=== PATIENT | male | born 1990 | race Hispanic/Latino ===

== ENCOUNTER 2024-02-28 10:45 | Emergency (ER) | payer OTHER ==
[2024-02-28] MEDS ORDERED: ONDANSETRON 4 MG/2 ML VIAL ONE (10:55)
[2024-02-28] MEDS ORDERED: NA CHLORIDE 0.9% 1,000 ML ONE (10:55)
[2024-02-28 11:08] LABS: Absolute Basophils 0.1 K/uL (0-0.5); Absolute Eosinophils 0.2 K/uL (0-0.5); Absolute Lymphocytes (CBC) 1.9 K/uL (0.7-4.9); Absolute Monocytes 0.5 K/uL (0.1-1.3); Absolute Neutrophil 4.3 K/uL (1.8-8.0); Eosinophils % 2.7 % (0-4.4); Hematocrit 37.5 % (39.6-49.0); Hemoglobin 12.5 g/dL (13.6-17.9); MCH 27.5 pg (27.0-35.0); MCHC 33.2 g/dL (32.0-36.0); MCV 82.7 fL (80-100); MPV 8.1 fL (7.6-11.3); Monocytes % 7.3 % (3.3-12.3); Nucleated Red Blood Cells % 0.1 % (0-0); Platelets 234 thou/uL (152-406); RBC Red Blood Cell Count 4.54 M/uL (4.33-5.43); Red Cell Distribution Width 15.1 % (12.1-15.2)
[2024-02-28 11:21] LABS: Albumin 3.4 g/dL (3.4-5.0); Albumin/Globulin Ratio 1.1 (1.1-1.8); Anion Gap 7.7 mEq/L (5.0-15.0); Bilirubin Total 0.4 mg/dL (0.2-1.0); Potassium 3.7 mEq/L (3.5-5.1); Protein, Total 6.4 g/dL (6.4-8.2)
--- NOTE | 2024-02-28 11:53 | ER ---
Nurse's Notes [facility] Name: Harry Pretty Age: 33 yrs Sex: Male : 1990 Arrival Date: 02/28/2024 Time: 10:45 Bed 8 Private MD: Diagnosis: Nausea with vomiting, unspecified Presentation: 02/27 10:47 Chief complaint: Patient states: nausea/vomiting/diarrhea and decreased appetite x 3-4 aa5 days ago. Pt is an inmate with poor ventilation in half-way cell. Coronavirus screen: diarrhea, vomiting. Ebola Screen: Patient denies travel to an Ebola-affected area in the 21 days before illness onset. Initial Sepsis Screen: Does the patient meet any 2 criteria? No. Patient's initial sepsis screen is negative. Does the patient have a suspected source of infection? No. Patient's initial sepsis screen is negative. Risk Assessment: Do you want to hurt yourself or someone else? Patient reports no desire to harm self or others. Onset of symptoms was February 2024. 10:47 Method Of Arrival: EMS: [facility] aa5 10:47 Acuity: AURE 3 aa5 10:47 Care prior to arrival: Medication(s) given: Normal saline infusion, 700mls NS Bolus IV aa5 initiated. 18 GA, in the right forearm. Historical: - Allergies: 10:50 Amoxicillin; aa5 10:50 NSAIDS; aa5 10:50 PENICILLINS; aa5 10:50 beta lactam antibiotics; aa5 - Home Meds: 10:50 duloxetine 30 mg oral Capsule, Delayed Release Sprinkle once [Active]; omeprazole 40 mg aa5 Oral capsule,delayed release (e.c.) once [Active]; - PMHx: 10:50 acid reflux; Anxiety; Depressive disorder; aa5 - PSHx: 10:50 jaw and face sx; aa5 - Immunization history:: Adult Immunizations unknown. - Infectious Disease History:: Denies. - Family history:: not pertinent. - Social history:: Smoking status: Patient denies any tobacco usage or history of. Screenin:50 [facility] ED Fall Risk Assessment (Adult) History of falling in the last 3 months, aa5 including since admission No falls in past 3 months (0 pts) Confusion or Disorientation No (0 pts) Intoxicated or Sedated No (0 pts) Impaired Gait No (0 pts) Mobility Assist Device Used No (0 pt) Altered Elimination No (0 pt) Score/Fall Risk Level 0 - 2 = Low Risk Oriented to surroundings, Maintained a safe environment, Educated pt \T\ family on fall prevention, incl call for assistance when getting out of bed. Abuse screen: Denies threats or abuse. Nutritional screening: Has had N/V for 3 or more days. Tuberculosis screening: No symptoms or risk factors identified. Assessment: 10:47 General: Appears uncomfortable, Behavior is calm, cooperative. Pain: Complains of pain aa5 in anterior aspect of left lateral abdomen and anterior aspect of right lateral abdomen Pain currently is 8 out of 10 on a pain scale. Quality of pain is described as crampy, Pain began 3-4 days ago Is intermittent. Neuro: Level of Consciousness is awake, alert, obeys commands, Oriented to person, place, time, situation. Cardiovascular: Heart tones S1 S2 present Rhythm is regular. Respiratory: Airway is patent Respiratory effort is even, unlabored, Respiratory pattern is regular, symmetrical. GI: Abdomen is round non-distended, Bowel sounds present X 4 quads. Abd is soft and non tender X 4 quads. Reports diarrhea, nausea, vomiting. : No signs and/or symptoms were reported regarding the genitourinary system. EENT: No signs and/or symptoms were reported regarding the EENT system. Derm: Skin is dry, Skin is pale, Skin temperature is warm. Musculoskeletal: Range of motion: intact in all extremities. 12:05 Reassessment: Patient is alert, oriented x 3, equal unlabored respirations, skin aa5 warm/dry/pink. Vital Signs: 10:47 BP 119 / 82; Pulse 63; Resp 18 S; Temp 98.4(O); Pulse Ox 98% on R/A; Weight 118.39 kg aa5 (R); Height 6 ft. 2 in. (R); Pain 8/10; 12:00 BP 116 / 78; Pulse 65; Resp 20 S; Pulse Ox 99% on R/A; Pain 5/10; aa5 10:47 Body Mass Index 33.51 (118.39 kg, 187.96 cm) aa5 10:47 Pain Scale: Adult aa5 12:00 Pain Scale: Adult aa5 ED Course: 10:46 Patient arrived in ED. eb 10:47 Tim Huff MD is Attending Physician. rt 10:47 Corry Ugalde, RN is Primary Nurse. aa5 10:47 Arm band placed on Patient placed in an exam room, on a stretcher. aa5 10:47 Patient has correct armband on for positive identification. Bed in low position. Side aa5 rails up X2. restrained with handcuffs and feet shackles by half-way guards. 10:49 Triage completed. aa5 10:57 Maintain EMS IV. Dressing intact. Good blood return noted. Site clean \T\ dry. Gauge \T\ aa 5 site: 18G R FA . 10:57 Initial lab(s) drawn, by me, sent to lab. aa5 11:00 Initial lab(s) drawn, by ED staff, sent to lab. mb9 12:05 No provider procedures requiring assistance completed. IV discontinued, intact, aa5 bleeding controlled, No redness/swelling at site. Pressure dressing applied. Administered Medications: 10:59 Drug: NS 0.9% IV 1000 ml IV at 1 bolus Per protocol; 1000 mL bolus Route: IV; Rate: 1 aa5 bolus; Site: right forearm; 12:05 Follow up: IV Status: Completed infusion; IV Intake: 1000ml aa5 10:59 Drug: Ondansetron IVP 4 mg IVP once; over 2 minutes Route: IVP; Site: right forearm; aa5 11:05 Follow up: Response: No adverse reaction aa5 Medication: 12:05 VIS not applicable for this client. aa5 Intake: 12:05 IV: 1000ml; Total: 1000ml. aa5 Outcome: 11:53 Discharge ordered by MD. rt 12:05 Discharged to Law Enforcement aa5 12:05 Condition: stable 12:05 Discharge instructions given to patient, [facility] guards Instructed on discharge instructions, follow up and referral plans. medication usage, Demonstrated understanding of instructions, follow-up care, medications, Prescriptions given X 1, 12:07 Patient left the ED. aa5 Signatures: Corry Ugalde, RN RN aa5 Mitali Parson, Nabila Bhandari RN RN mb9 Tim Huff MD MD rt Corrections: (The following items were deleted from the chart) 10:54 10:47 BP 119 / 82; Pulse 63bpm; Resp 18bpm; Spontaneous; Pulse Ox 98% RA; Temp 97.8F aa5 Temporal; 118.39 kg Reported; Height 6 ft. 2 in. Reported; BMI: 33.5; Pain 8, Adult; aa5 10:59 10:59 NS 0.9% IV 1000 ml IV at 1 bolus in left forearm aa5 aa5
--- NOTE | 2024-02-28 11:53 | EDPHYS ---
Physician Documentation [facility] Name: Harry Pretty Age: 33 yrs Sex: Male : 1990 Arrival Date: 02/28/2024 Time: 10:45 Bed 8 Private MD: ED Physician Tim Huff HPI: 02/27 10:50 This 33 yrs old Male presents to ER via EMS with complaints of rt Nausea/Vomiting/Diarrhea, Heat Exposure. 10:50 Patient presents to the ED with nausea, vomiting, diarrhea for about 3 days. Denies any rt significant abdominal pain. Patient reports that he is dehydrated. States that he is somewhat dizzy. Denies other acute complaints at this time, symptoms are moderate in severity, no other aggravating or alleviating factors.. Historical: - Allergies: 10:50 Amoxicillin; aa5 10:50 NSAIDS; aa5 10:50 PENICILLINS; aa5 10:50 beta lactam antibiotics; aa5 - Home Meds: 10:50 duloxetine 30 mg oral Capsule, Delayed Release Sprinkle once [Active]; omeprazole 40 mg aa5 Oral capsule,delayed release (e.c.) once [Active]; - PMHx: 10:50 acid reflux; Anxiety; Depressive disorder; aa5 - PSHx: 10:50 jaw and face sx; aa5 - Immunization history:: Adult Immunizations unknown. - Infectious Disease History:: Denies. - Family history:: not pertinent. - Social history:: Smoking status: Patient denies any tobacco usage or history of. ROS: 10:50 Constitutional: Negative for fever, chills, and weight loss, Cardiovascular: Negative rt for chest pain, palpitations, and edema, Respiratory: Negative for shortness of breath, cough, wheezing, and pleuritic chest pain, MS/Extremity: Negative for injury and deformity, Skin: Negative for injury, rash, and discoloration, 10:50 Abdomen/GI: Positive for nausea, vomiting, and diarrhea, 10:50 Neuro: Positive for dizziness, Negative for altered mental status, Exam: 10:50 Constitutional: This is a well developed, well nourished patient who is awake, alert, rt and in no acute distress. Head/Face: Normocephalic, atraumatic. Chest/axilla: Normal chest wall appearance and motion. Nontender with no deformity. No lesions are appreciated. Cardiovascular: Regular rate and rhythm with a normal S1 and S2. No gallops, murmurs, or rubs. Normal PMI, no JVD. No pulse deficits. Respiratory: Lungs have equal breath sounds bilaterally, clear to auscultation and percussion. No rales, rhonchi or wheezes noted. No increased work of breathing, no retractions or nasal flaring. Abdomen/GI: Soft, non-tender, with normal bowel sounds. No distension or tympany. No guarding or rebound. No evidence of tenderness throughout. Skin: Warm, dry with normal turgor. Normal color with no rashes, no lesions, and no evidence of cellulitis. MS/ Extremity: Pulses equal, no cyanosis. Neurovascular intact. Full, normal range of motion. Neuro: Awake and alert, GCS 15, oriented to person, place, time, and situation. Cranial nerves II-XII grossly intact. Motor strength 5/5 in all extremities. Sensory grossly intact. Cerebellar exam normal. Normal gait. Vital Signs: 10:47 BP 119 / 82; Pulse 63; Resp 18 S; Temp 98.4(O); Pulse Ox 98% on R/A; Weight 118.39 kg aa5 (R); Height 6 ft. 2 in. (R); Pain 8/10; 12:00 BP 116 / 78; Pulse 65; Resp 20 S; Pulse Ox 99% on R/A; Pain 5/10; aa5 10:47 Body Mass Index 33.51 (118.39 kg, 187.96 cm) aa5 10:47 Pain Scale: Adult aa5 12:00 Pain Scale: Adult aa5 MDM: 10:47 Patient medically screened. rt 11:55 Differential diagnosis: Gastroenteritis, heat exhaustion, pancreatitis, electrolyte rt disturbance. Data reviewed: vital signs, nurses notes, lab test result(s). I considered the following discharge prescriptions or medication management in the emergency department Medications were administered in the Emergency Department. See MAR. Test considered but Not performed: CT: Patient with no areas of abdominal tenderness, stable labs, symptoms are improving with treatment in the ED, do not believe that CT scan is indicated throughout surgical pathology such as appendicitis, cholecystitis, bowel obstruction. Counseling: I had a detailed discussion with the patient and/or guardian regarding the historical points, exam findings, and any diagnostic results supporting the discharge/admit diagnosis, lab results, the need for outpatient follow up, to return to the emergency department if symptoms worsen or persist or if there are any questions or concerns that arise at home. Response to treatment: the patient's symptoms have markedly improved after treatment. 02/27 10:47 Order name: CBC with Diff; Complete Time: 11:32 rt 02/27 10:47 Order name: CMP; Complete Time: 11:32 rt 02/27 10:47 Order name: Lipase; Complete Time: 11:32 rt 02/27 10:47 Order name: IV Saline Lock; Complete Time: 10:53 rt 02/27 10:47 Order name: Labs collected and sent; Complete Time: 10:59 rt Administered Medications: 10:59 Drug: NS 0.9% IV 1000 ml IV at 1 bolus Per protocol; 1000 mL bolus Route: IV; Rate: 1 aa5 bolus; Site: right forearm; 12:05 Follow up: IV Status: Completed infusion; IV Intake: 1000ml aa5 10:59 Drug: Ondansetron IVP 4 mg IVP once; over 2 minutes Route: IVP; Site: right forearm; aa5 11:05 Follow up: Response: No adverse reaction aa5 Disposition Summary: 02/28/24 11:53 Discharge Ordered Notes: Location: Law Enforcement rt Problem: new rt Symptoms: have improved rt Condition: Stable rt Diagnosis - Nausea with vomiting, unspecified rt Followup: rt - With: Private Physician - When: 2 - 3 days - Reason: Discharge Instructions: - Discharge Summary Sheet rt - Nausea and Vomiting, Adult rt Forms: - Medication Reconciliation Form rt - Antibiotic Education rt - Prescription Opioid Use rt - Patient Portal Instructions rt - Leadership Thank You Letter rt Prescriptions: - Zofran 4 mg Oral tablet - take 1 tablet ORAL route every 6 hours As needed; 18 tablet; Refills: 0, rt Product Selection Permitted Signatures: Dispatcher [employer] Corry Solis RN RN aa5 Tim Huff MD MD rt
[2024-02-28 12:16] VITALS: BP 119/82; TEMP 98.4; O2SAT 98
== END 2024-02-28 12:07 ==
LOC: ER 10:45
DX: R11.2 Nausea with vomiting, unspecified (principal); R19.7 Diarrhea, unspecified; R42 Dizziness and giddiness; Z88.0 Allergy status to penicillin; Z88.1 Allergy status to other antibiotic agents; Z88.6 Allergy status to analgesic agent
CPT/HCPCS: 96361; 85025; 36415; 83690; 80053; 96374; 99284; J2405; J7030

== ENCOUNTER 2024-04-27 17:18 | Emergency (ER) | payer OTHER ==
[2024-04-27 17:56] LABS: Absolute Basophils 0.1 K/uL (0-0.5); Absolute Eosinophils 0.2 K/uL (0-0.5); Absolute Lymphocytes (CBC) 2.4 K/uL (0.7-4.9); Absolute Monocytes 0.8 K/uL (0.1-1.3); Absolute Neutrophil 9.5 K/uL (1.8-8.0); Basophils % 0.8 % (0-1.3); Eosinophils % 1.7 % (0-4.4); Hematocrit 37.6 % (39.6-49.0); Hemoglobin 12.3 g/dL (13.6-17.9); Lymphocytes % 18.5 % (15.3-44.8); MCH 27.2 pg (27.0-35.0); MCHC 32.7 g/dL (32.0-36.0); MCV 83.1 fL (80-100); MPV 7.4 fL (7.6-11.3); Monocytes % 5.9 % (3.3-12.3); Neutrophils % 73.1 % (41.7-73.7); Platelets 334 thou/uL (152-406); RBC Red Blood Cell Count 4.52 M/uL (4.33-5.43); Red Cell Distribution Width 13.9 % (12.1-15.2)
[2024-04-27 18:12] LABS: D-Dimer 0.806 FEUug/mL (0-0.500); PT Prothrombin Time 12.4 SECONDS (9.4-12.5); Protime INR 1.11
[2024-04-27 18:21] LABS: ALT/SGPT 22 U/L (16-61); AST/SGOT 14 U/L (15-37); Albumin 3.3 g/dL (3.4-5.0); Albumin/Globulin Ratio 0.8 (1.1-1.8); Alkaline Phosphatase 98 U/L (45-117); Anion Gap 9.3 mEq/L (5.0-15.0); BUN Blood Urea Nitrogen 22 mg/dL (7-18); Bicarbonate 23 mEq/L (21-32); Bilirubin Total 0.4 mg/dL (0.2-1.0); Glomerular Filtration Rate 103 ml/min (=/>90); Glucose Level 97 mg/dL (74-106); NT PRO-BNP 27 pg/mL (<125); Potassium 3.3 mEq/L (3.5-5.1); Protein, Total 7.3 g/dL (6.4-8.2); Sodium Level 135 mEq/L (136-145)
[2024-04-27 18:23] LABS: Bilirubin Direct < 0.2 mg/dL (0-0.2); Bilirubin Indirect, Calculated 0.2 mg/dL (0.2-0.8); Troponin High Sensitivity < 3.0 pg/mL (<58.9)
--- NOTE | 2024-04-27 18:35 | RAD REPORT ---
EXAM DESCRIPTION: Ale Single View04/27/2024 6:02 pm CLINICAL HISTORY: Chest pain COMPARISON: none FINDINGS: The lungs appear clear of acute infiltrate. The heart is normal size IMPRESSION: No acute abnormalities displayed
--- NOTE | 2024-04-27 20:14 | RAD REPORT ---
EXAM DESCRIPTION: CT - Chest For Pe Angio - 04/27/2024 7:58 pm CLINICAL HISTORY: Chest pain COMPARISON: None. TECHNIQUE: Dynamically enhanced axial 3 mm thick images of the chest were obtained during administra tion of 100 mL Isovue 370 IV contrast. Coronal and oblique reconstruction images were generated and r eviewed. Exam utilizes a protocol for optimal evaluation of pulmonary arterial tree. Maximum intensity projections 3D imaging was utilized All CT scans are performed using dose optimization technique as appropriate and may include automated exposure control or mA/KV adjustment according to patient size. FINDINGS: A pulmonary embolus is not seen. A thoracic aortic aneurysm is not noted. A pleural effusion is not seen. A pericardial effusion is not seen. A lung consolidation is not present. Paraseptal emphysema. A few areas of scarring or subsegmental at electasis within the lungs Small to moderate hiatal hernia. Possible soft tissue within herniated stomach IMPRESSION: Negative for a pulmonary embolism. COPD Small to moderate hiatal hernia. Possible soft tissue within the herniated stomach. Direct visualizat ion recommended to exclude a mass
[2024-04-27] MEDS ORDERED: NA CHLORIDE 0.9% 100 ML ONE (20:25)
[2024-04-27] MEDS ORDERED: METHOCARBAMOL 1,000 MG/10 ML VIAL ONE (20:25)
[2024-04-27] MEDS ORDERED: ACETAMINOPHEN 500 MG TAB ONE (20:25)
--- NOTE | 2024-04-27 20:34 | ER ---
Nurse's Notes [facility] Name: Harry Pretty Age: 33 yrs Sex: Male : 1990 Arrival Date: 04/27/2024 Time: 17:18 Bed 14 Private MD: Diagnosis: Chest pain, unspecified;Hiatel Hernia Presentation: 04/27 17:24 Chief complaint: EMS states: Pt from [facility], c/o chest pain that has bee ongoing ph for a few weeks, worse the last 2 days, seen in [facility], received SL Nitro x 2 and 324 ASA, pain decreased for 05/12 to 02/09, 12 lead showed BBB, VSS, 20G to LAC. Coronavirus screen: Vaccine status: Patient reports receiving the 2nd dose of the covid vaccine. Ebola Screen: No symptoms or risks identified at this time. Initial Sepsis Screen: Does the patient meet any 2 criteria? No. Patient's initial sepsis screen is negative. Does the patient have a suspected source of infection? No. Patient's initial sepsis screen is negative. Risk Assessment: Do you want to hurt yourself or someone else? Patient reports no desire to harm self or others. Onset of symptoms was April 27, 2024. 17:24 Method Of Arrival: EMS: [facility] 17:24 Acuity: AURE 2 ph Triage Assessment: 17:27 General: Appears in no apparent distress. Behavior is calm, cooperative. Pain: ph Complains of pain in chest Pain radiates to left arm. Neuro: Level of Consciousness is awake, alert, obeys commands, Oriented to person, place, time, situation. Cardiovascular: Reports chest pain, lightheadedness, nausea, shortness of breath. Respiratory: Airway is patent Respiratory effort is even, unlabored. GI: No signs and/or symptoms were reported involving the gastrointestinal system. Derm: Skin is pink, warm \T\ dry. Historical: - Allergies: 17:27 Amoxicillin; ph 17:27 beta lactam antibiotics; ph 17:27 NSAIDS; ph 17:27 PENICILLINS; ph - Home Meds: 17:27 duloxetine 30 mg Oral Capsule once [Active]; omeprazole 40 mg Oral capsule once ph [Active]; - PMHx: 17:27 acid reflux; Anxiety; depressive disorder; ph - PSHx: 17:27 jaw and face sx; ph - Immunization history:: Adult Immunizations up to date. - Infectious Disease History:: Denies. - Social history:: Smoking status: unknown. Screenin:28 [facility] ED Fall Risk Assessment (Adult) History of falling in the last 3 months, ph including since admission No falls in past 3 months (0 pts) Confusion or Disorientation No (0 pts) Intoxicated or Sedated No (0 pts) Impaired Gait No (0 pts) Mobility Assist Device Used No (0 pt) Altered Elimination No (0 pt) Score/Fall Risk Level 0 - 2 = Low Risk Oriented to surroundings, Maintained a safe environment, Hourly rounding (assess needs \T\ fall precautionary measures) done. Abuse screen: Denies threats or abuse. Denies injuries from another. Nutritional screening: No deficits noted. Tuberculosis screening: No symptoms or risk factors identified. Assessment: 17:30 General: SEE TRIAGE ASSESSMENT. ph 19:01 Reassessment: Patient appears in no apparent distress at this time. Patient and/or ph family updated on plan of care and expected duration. Pain level reassessed. Pt resting comfortably w/ eyes closed. 20:00 Reassessment: Patient appears in no apparent distress at this time. Patient and/or jb4 family updated on plan of care and expected duration. Pain level reassessed. Patient is alert, oriented x 3, equal unlabored respirations, skin warm/dry/pink. 21:14 Reassessment: Patient appears in no apparent distress at this time. Patient and/or jb4 family updated on plan of care and expected duration. Pain level reassessed. Patient is alert, oriented x 3, equal unlabored respirations, skin warm/dry/pink. d/c pending completion of IV infusion. Vital Signs: 17:24 BP 104 / 75; Pulse 80; Resp 18; Temp 97.1; Pulse Ox 100% on R/A; Weight 122 kg; Height ph 6 ft. 3 in. ; 17:49 BP 103 / 76; Pulse 75; Resp 16; Pulse Ox 98% on R/A; ph 19:00 BP 103 / 75; Pulse 75; Resp 18; Pulse Ox 94% on R/A; ph 21:00 BP 106 / 91; Pulse 73; Resp 16; Pulse Ox 100% on R/A; jb4 17:24 Body Mass Index 33.62 (122.00 kg, 190.5 cm) ph Vitals: 17:50 Cardiac Rhythm Assessment Regular. ph ED Course: 17:23 Patient arrived in ED. ph 17:24 Bonnie Da Silva FNP-C is PHCP. kb 17:24 Juan C Mina MD is Attending Physician. kb 17:24 PHCP role handed off by Bonnie Da Silva FNP-C cp 17:24 Ervin Phillips PA is PHCP. cp 17:27 Triage completed. ph 17:28 Arm band placed on Patient placed in an exam room, on a stretcher, on cloak room attendant, ph on pulse oximetry. 17:29 Patient has correct armband on for positive identification. Bed in low position. Call ph light in reach. Side rails up X2. Client placed on continuous cardiac and pulse oximetry monitoring. NIBP monitoring applied. registered nurse practitioner on. 17:29 Patient maintains SpO2 saturation greater than 95% on room air. ph 17:34 Jodi Jang, RN is Primary Nurse. ph 17:49 Basic Metabolic Panel Sent. ph 17:49 CBC with Diff Sent. ph 17:49 D-Dimer Sent. ph 17:49 LFT's Sent. ph 17:49 Magnesium Sent. ph 17:49 NT PRO-BNP Sent. ph 17:49 PT-INR Sent. ph 17:49 Troponin HS Sent. ph 17:50 Initial lab(s) drawn, by nj, sent to lab. EKG done, by ED staff, reviewed by Ervin Phillips ph PA. Maintain EMS IV. Dressing intact. Good blood return noted. Site clean \T\ dry. Gauge \T\ site: 20 LAC. Flushed with 10 mL NS. 18:03 XRAY Chest (1 view) In Process Unspecified. EDMS 20:00 CT Chest For PE Angio In Process Unspecified. EDMS 20:31 Barrington Burnham MD is Referral Physician. cp 20:31 Homero Lu MD is Referral Physician. cp 21:00 Provided Education on: plan of care. jb4 21:00 No provider procedures requiring assistance completed. jb4 21:35 IV discontinued, intact, bleeding controlled, No redness/swelling at site. Pressure jb4 dressing applied. Administered Medications: 17:49 Drug: NS 0.9% IV 1000 ml IV at 999 ml/hr Per protocol Route: IV; Rate: 999 ml/hr; Site: ph left antecubital; 19:00 Follow up: Response: No adverse reaction; IV Status: Completed infusion; IV Intake: ph 1000ml 20:31 Drug: Methocarbamol IVPB 1 grams IVPB once over 1 hrs; (mix in NS 100 mL) Route: IVPB; jb4 Infused Over: 1 hrs; Site: left antecubital; 21:37 Follow up: Response: No adverse reaction; IV Status: Completed infusion; IV Intake: jb4 100ml 20:31 Drug: Acetaminophen PO 1000 mg PO once Route: PO; jb4 21:37 Follow up: Response: No adverse reaction; Marked relief of symptoms jb4 20:51 Drug: GI Cocktail without - (Maalox PO 30 ml, Lidocaine Mucous Membrane 2 % 15 jb4 ml) PO once Route: PO; 21:38 Follow up: Response: No adverse reaction; Marked relief of symptoms jb4 20:52 Drug: Potassium PO Effervescent Tablet 50 mEq PO once; dissolve in 4 ounces of water or jb4 juice Route: PO; 21:38 Follow up: Response: No adverse reaction; Marked relief of symptoms jb4 Medication: 17:29 VIS not applicable for this client. ph Intake: 19:00 IV: 1000ml; Total: 1000ml. ph 21:37 IV: 100ml; Total: 1100ml. jb4 Outcome: 20:33 Discharge ordered by . cp 21:35 Discharged to Law Enforcement jb4 21:35 Condition: stable 21:35 Discharge instructions given to patient, police, Instructed on discharge instructions, follow up and referral plans. medication usage, Demonstrated understanding of instructions, follow-up care, medications, Prescriptions given X 1, 21:39 Patient left the ED. jb4 Signatures: Dispatcher [employer] EDNY Bonnie Da Silva, Jodi Leong RN RN ph Ervin Phillips PA PA cp Bryson, James, RN RN jb4
--- NOTE | 2024-04-27 20:34 | EDPHYS ---
Physician Documentation [facility] Name: Harry Pretty Age: 33 yrs Sex: Male : 1990 Arrival Date: 04/27/2024 Time: 17:18 Bed 14 Private MD: ED Physician Juan C Mina HPI: 04/27 17:33 This 33 yrs old Male presents to ER via EMS with complaints of Chest Pain. cp 17:33 The patient or guardian reports chest pain that is located primarily in the anterior cp chest wall, left. 17:33 The pain radiates to the left arm. cp 17:33 Associated signs and symptoms: Pertinent negatives: abdominal pain, cough, diaphoresis, cp dizziness, lower extremity pain, lower extremity swelling, shortness of breath, syncope, vomiting. The chest pain is described as aching. Duration: The patient or guardian reports multiple episodes, for past few weeks, constant and worse past 2 days. Historical: - Allergies: 17:27 Amoxicillin; ph 17:27 beta lactam antibiotics; ph 17:27 NSAIDS; ph 17:27 PENICILLINS; ph - Home Meds: 17:27 duloxetine 30 mg Oral Capsule once [Active]; omeprazole 40 mg Oral capsule once ph [Active]; - PMHx: 17:27 acid reflux; Anxiety; depressive disorder; ph - PSHx: 17:27 jaw and face sx; ph - Immunization history:: Adult Immunizations up to date. - Infectious Disease History:: Denies. - Social history:: Smoking status: unknown. ROS: 17:35 Constitutional: Negative for body aches, chills, fever, poor PO intake, cp 17:35 Cardiovascular: Positive for chest pain, Negative for edema, palpitations, cp 17:35 Respiratory: Negative for cough, shortness of breath, wheezing, cp 17:35 Abdomen/GI: Negative for vomiting, diarrhea, constipation, 17:35 Neuro: Negative for altered mental status, dizziness, headache, numbness, weakness, 17:35 All other systems are negative, cp Exam: 17:40 Constitutional: The patient appears in no acute distress, alert, awake, cp non-diaphoretic, non-toxic, well developed, well nourished, overweight 17:40 Head/Face: Normocephalic, atraumatic. cp 17:40 Eyes: Periorbital structures: appear normal, Conjunctiva: normal, no exudate, no injection, Sclera: no appreciated abnormality, Lids and lashes: appear normal, bilaterally, 17:40 ENT: External ear(s): are unremarkable, Nose: is normal, Mouth: Lips: moist, Oral mucosa: moist, Posterior pharynx: Airway: no evidence of obstruction, patent, 17:40 Chest/axilla: Inspection: normal, Palpation: crepitus, is not appreciated, tenderness, that is mild, of the anterior aspect of left upper chest, 17:40 Cardiovascular: Rate: normal, Rhythm: regular, Pulses: Pulses are 2+ in right radial artery and left radial artery. Edema: is not appreciated, JVD: is not appreciated, 17:40 Respiratory: the patient does not display signs of respiratory distress, Respirations: normal, no use of accessory muscles, no retractions, labored breathing, is not present, Breath sounds: are clear throughout, no decreased breath sounds, no stridor, no wheezing, 17:40 Abdomen/GI: Inspection: abdomen appears normal, Bowel sounds: active, all quadrants, Palpation: abdomen is soft and non-tender, in all quadrants, 17:40 Neuro: Orientation: to person, place \T\ time. Mentation: is normal, Motor: moves all fours, strength is normal, Sensation: is normal, 17:48 ECG was reviewed by the Attending Physician. cp Vital Signs: 17:24 BP 104 / 75; Pulse 80; Resp 18; Temp 97.1; Pulse Ox 100% on R/A; Weight 122 kg; Height ph 6 ft. 3 in. ; 17:49 BP 103 / 76; Pulse 75; Resp 16; Pulse Ox 98% on R/A; ph 19:00 BP 103 / 75; Pulse 75; Resp 18; Pulse Ox 94% on R/A; ph 21:00 BP 106 / 91; Pulse 73; Resp 16; Pulse Ox 100% on R/A; jb4 17:24 Body Mass Index 33.62 (122.00 kg, 190.5 cm) ph MDM: 17:24 Patient medically screened. kb 18:00 Differential diagnosis: abnormal EKG, acute myocardial infarction, acute pericarditis, cp anxiety, chest wall pain, gastroesophageal reflux disease (GERD), pancreatitis, pleurisy, pneumonia, pneumothorax, pulmonary embolus, stable angina, thoracic aortic disection, unstable angina. 20:33 Data reviewed: vital signs, nurses notes, lab test result(s), EKG, radiologic studies, cp CT scan, plain films, and as a result, I will discharge patient. 20:33 I considered the following discharge prescriptions or medication management in the emergency department Medications were administered in the Emergency Department. See MAR. Independent interpretation of the following test(s) in the Emergency Department EKG: See my EKG interpretation above. Counseling: I had a detailed discussion with the patient and/or guardian regarding the historical points, exam findings, and any diagnostic results supporting the discharge/admit diagnosis, lab results, radiology results, to return to the emergency department if symptoms worsen or persist or if there are any questions or concerns that arise at home. Response to treatment: the patient's symptoms have mildly improved after treatment, and as a result, I will discharge patient. Special discussion: Based on the patient's history, exam, and Dx evaluation, there is no indication for emergent intervention or inpatient Tx. It is understood by the patient/guardian that if the Sx's persist or worsen they need to return immediately for re-evaluation. 04/27 17:26 Order name: Basic Metabolic Panel; Complete Time: 18:38 cp 04/27 17:26 Order name: CBC with Diff; Complete Time: 18:38 cp 04/27 20:22 Interpretation: Normal except: WBC 13.00; HGB 12.3; HCT 37.6; MPV 7.4; NEUT A 9.5. cp 04/27 17:26 Order name: D-Dimer; Complete Time: 18:38 cp 04/27 17:26 Order name: LFT's; Complete Time: 18:38 cp 04/27 17:26 Order name: Magnesium; Complete Time: 18:38 cp 04/27 17:26 Order name: NT PRO-BNP; Complete Time: 18:38 cp 04/27 17:26 Order name: PT-INR; Complete Time: 18:38 cp 04/27 17:26 Order name: Troponin HS; Complete Time: 18:38 cp 04/27 17:26 Order name: XRAY Chest (1 view); Complete Time: 18:38 cp 04/27 18:38 Order name: CT Chest For PE Angio; Complete Time: 20:20 cp 04/27 20:26 Interpretation: Report reviewed. cp 04/27 17: Order name: Cardiac monitoring; Complete Time: 17:49 cp 04/27 17:26 Order name: EKG - Nurse/Tech; Complete Time: 17:49 cp 04/27 17:26 Order name: IV Saline Lock; Complete Time: 17:49 cp 04/27 17: Order name: Labs collected and sent; Complete Time: 17:49 cp 04/27 17: Order name: O2 Per Protocol; Complete Time: 17:49 cp 04/27 17: Order name: O2 Sat Monitoring; Complete Time: 17:49 cp EC:48 Rate is 78 beats/min. Rhythm is regular. DC interval is normal. QRS interval is cp prolonged at 152 msec. QT interval is normal. T waves are Inverted in lead aVR. Interpreted by me. Reviewed by me. Administered Medications: 17:49 Drug: NS 0.9% IV 1000 ml IV at 999 ml/hr Per protocol Route: IV; Rate: 999 ml/hr; Site: ph left antecubital; 19:00 Follow up: Response: No adverse reaction; IV Status: Completed infusion; IV Intake: ph 1000ml 20:31 Drug: Methocarbamol IVPB 1 grams IVPB once over 1 hrs; (mix in NS 100 mL) Route: IVPB; jb4 Infused Over: 1 hrs; Site: left antecubital; 21:37 Follow up: Response: No adverse reaction; IV Status: Completed infusion; IV Intake: jb4 100ml 20:31 Drug: Acetaminophen PO 1000 mg PO once Route: PO; jb4 21:37 Follow up: Response: No adverse reaction; Marked relief of symptoms jb4 20:51 Drug: GI Cocktail without - (Maalox PO 30 ml, Lidocaine Mucous Membrane 2 % 15 jb4 ml) PO once Route: PO; 21:38 Follow up: Response: No adverse reaction; Marked relief of symptoms jb4 20:52 Drug: Potassium PO Effervescent Tablet 50 mEq PO once; dissolve in 4 ounces of water or jb4 juice Route: PO; 21:38 Follow up: Response: No adverse reaction; Marked relief of symptoms jb4 Disposition Summary: 04/27/24 20:33 Discharge Ordered Notes: Location: Home cp Problem: new cp Symptoms: have improved cp Condition: Stable cp Diagnosis - Chest pain, unspecified cp - Hiatel Hernia cp Followup: cp - With: Barrington Burnham MD - When: 2 - 3 days - Reason: hiatel hernia Followup: cp - With: Homero Lu MD - When: 2 - 3 days - Reason: chest pain Discharge Instructions: - Discharge Summary Sheet cp - Nonspecific Chest Pain, Adult cp - Hiatal Hernia cp Forms: - Medication Reconciliation Form cp - Antibiotic Education cp - Prescription Opioid Use cp - Patient Portal Instructions cp - Leadership Thank You Letter cp Prescriptions: - Carafate 1 gram Oral tablet - take 1 tablet ORAL route 4 times per day take on an empty stomach, beginning on cp waking and last dose at bedtime. dissolve tablet in 6 oz warm water prior to ingestion; 100 tablet; Refills: 0, Product Selection Permitted Signatures: Dispatcher [employer] EDMS Bonnie Da Silva, NAT-C FI[employer]TERS DISPATCHER-Jodi Vee RN RN ph Ervin Phillips, PA PA cp Haresh Tafoya RN RN jb4 Corrections: (The following items were deleted from the chart) 17:27 17:27 BASIC METABOLIC PANEL+C.LAB.BRZ ordered. EDMS EDMS 17: 17:27 CBC+H.LAB.BRZ ordered. EDMS EDMS 17: 17:27 D-DIMER+COAG.LAB.BRZ ordered. EDMS EDMS 17:27 17:27 HEPATIC FUNCTION+C.LAB.BRZ ordered. EDMS EDMS 17:27 17:27 MAGNESIUM+C.LAB.BRZ ordered. EDMS EDMS 17: 17:27 PROBNP+C.LAB.BRZ ordered. EDMS EDMS 17: 17:27 PROTIME (+INR)+COAG.LAB.BRZ ordered. EDMS EDMS 17:27 17:27 Troponin High Sensitivity+C.LAB.BRZ ordered. EDMS EDMS 17:27 17:27 Chest Single View+RAD.RAD.BRZ ordered. EDMS EDMS 04/28 15:56 04/27 17:33 The pain does not radiate. cp cp
[2024-04-27] MEDS ORDERED: MAGNES/ALUMIN/SIMET 30ML UCUP ONE (20:45)
[2024-04-27] MEDS ORDERED: POTASSIUM 25 MEQ EFFERV TAB ONE (20:45)
[2024-04-27] MEDS ORDERED: LIDOCAINE VISCOUS 2% 10ML ORAL SOLN ONE (20:46)
[2024-04-27 21:44] VITALS: TEMP 97.1
[2024-04-27 21:49] VITALS: BP 106/91; O2SAT 100
--- NOTE | 2024-04-28 12:41 | EKG ---
Test Date: 2024-04-27 Test Time: 17:42:28 Plant Protection Officer: PH MEASUREMENT RESULTS: Intervals: Rate: 78 TX: 138 QRSD: 152 QT: 430 QTc: 490 [place]: P: 52 TX: 138 QRS: 62 T: 55 INTERPRETIVE STATEMENTS: Normal sinus rhythm Right bundle branch block Abnormal ECG No previous ECG available for comparison Electronically Signed On 04-28-24 12:38:23 CDT by Neville Huerta
== END 2024-04-27 21:39 | disposition home or self-care (01) ==
LOC: ER 17:18
DX: R07.89 Other chest pain (principal); K44.9 Diaphragmatic hernia without obstruction or gangrene
CPT/HCPCS: 96365; 96361; 93005; 85025; 80048; 36415; 83735; 85610; 85379; 80076; 84484; 83880; 71275; 71045; 99285; Q9967; J2800